=== PATIENT | male | born 1955 | race Caucasian/White ===

== ENCOUNTER → 2021-03-12 12:28 | Outpatient (BNVA) | payer SELFPAY | PROVIDERS: PCP Physician Assistant; Visit Provider Internal Medicine | DX: Z02.79 Encounter for issue of other medical certificate (principal) ==

== ENCOUNTER 2022-06-05 06:27 | Outpatient (REF) | payer MEDICARE, SELFPAY ==
--- NOTE | ~2022-06-05 | XR_ITS ---
EXAMINATION: XR SHOULDER, LEFT CLINICAL INFORMATION: Pain. COMPARISON: None TECHNIQUE: AP external rotation, Grashey, scapular Y, and axillary views of the left shoulder. FINDINGS: There is mild reduction in the left AC joint with inferior spurring. The glenohumeral joint space is maintained normal. No visible acute fracture, dislocation or subluxation seen. The soft tissues are normal. XR/XR shoulder LT min 2V IMPRESSION: Mild degenerative changes left AC joint without acute fracture or dislocation.
== END 2022-06-05 06:28 | disposition home or self-care (01) ==
LOC: HO.XRAY 06:27
PROVIDERS: PCP Physician Assistant; Visit Provider Physician Assistant
DX: M25.512 Pain in left shoulder (principal)
CPT/HCPCS: 73030

== ENCOUNTER 2022-10-29 08:43 | Outpatient (REF) | payer MEDICARE, SELFPAY ==
[2022-10-29 09:35] LABS: Hemoglobin 12.7 g/dl (14.0-18.0); Mean Corpuscular HGB Conc 32.6 g/dl (31.0-36.0); Mean Corpuscular Hemoglobin 30.8 pg (27.0-33.0); Mean Corpuscular Volume 94.7 fL (80.0-98.0); Mean Platelet Volume 10.5 fL (9.4-12.4); Platelet Count 185 X10*3/uL (160-400); Red Blood Count 4.12 X10*6/uL (4.60-5.80); Red Cell Distribution Width 14.2 % (11.0-16.0); White Blood Count 8.1 X10*3/uL (4.8-10.8)
[2022-10-29 10:19] LABS: Alanine Aminotransferase 60 U/L (0-40); Albumin Level 4.2 g/dL (3.5-5.0); Alkaline Phosphatase 147 U/L (39-117); Anion Gap 12 (12-20); Aspartate Amino Transferase 50 U/L (5-37); Bilirubin Total 0.5 mg/dL (0.0-1.0); Blood Urea Nitrogen 12 mg/dL (9-16); Calcium 9.5 mg/dL (8.4-10.2); Carbon Dioxide 27 mmol/L (22-29); Chloride 108 mmol/L (96-108); Cholesterol 178 mg/dL; Estimated Glomerular Filt Rate > 60; Glucose Fasting 102 mg/dL (60-99); HDL Cholesterol 49 mg/dL; LDL Cholesterol Calculated 115 mg/dl; Potassium 4.3 mmol/L (3.3-5.1); Sodium 143 mmol/L (135-145); Total Protein 6.5 g/dL (6.5-8.0); Triglycerides 72 mg/dL
== END 2022-10-29 08:44 | disposition home or self-care (01) ==
LOC: HO.LAB 08:43
PROVIDERS: PCP Physician Assistant; Visit Provider Physician Assistant
DX: Z13.1 Encounter for screening for diabetes mellitus (principal); F17.200 Nicotine dependence, unspecified, uncomplicated
CPT/HCPCS: 36415; 80053; 80061; 85027

== ENCOUNTER → 2022-11-03 09:45 | Outpatient (BNVA) | payer MEDICARE, SELFPAY | PROVIDERS: PCP Physician Assistant; Visit Provider Physician Assistant | DX: M75.112 Incomplete rotator cuff tear or rupture of left shoulder, not specified as traumatic (principal) | CPT/HCPCS: 99202 ==

== ENCOUNTER 2022-11-08 10:19 | Outpatient (REF) | payer MEDICARE, SELFPAY ==
--- NOTE | ~2022-11-08 | MR_ITS ---
EXAMINATION: MRI LEFT SHOULDER WITHOUT CONTRAST CLINICAL INFORMATION: Left shoulder pain. COMPARISON: Radiographs 06/05/2022 TECHNIQUE: MRI of the shoulder without contrast is performed on a 1.5 Gabby high-field scanner. FINDINGS: ROTATOR CUFF: Complete or near complete tear of the supraspinatus tendon as there may be some articular surface fibers remaining intact. The superficial fibers are retracted 10 mm. Subscapularis and infraspinatus tendinopathy. No muscle atrophy or fatty infiltration. BICEPS: Mild proximal biceps tendinosis. CORACOACROMIAL ARCH: The undersurface of the acromion is curved with [id number] subacromial spurring. Moderate acromioclavicular osteoarthritis. Prominent fluid throughout the subacromial subdeltoid bursa with synovitis supports full-thickness tearing of the supraspinatus tendon insertion. There is ossification and low signal thickening along the coracoclavicular ligaments most likely due to a remote injury. LABRUM/CAPSULE: Probable undersurface degenerative tearing of the superior labrum. GLENOHUMERAL JOINT/MARROW: Small joint effusion. Cartilage thinning and osteophyte formation of the anterior glenoid rim. Degenerative spurring and areas of marrow edema along the greater tuberosity. ADDITIONAL FINDINGS: None. MR/MR shoulder LT wo con IMPRESSION: 1. Complete or near complete tear of the supraspinatus tendon insertion. 2. Subscapularis/infraspinatus tendinosis. 3. Subacromial spurring. Moderate acromioclavicular osteoarthritis. Evidence of a remote injury of the coracoclavicular ligaments. 4. Probable undersurface degenerative tearing of the superior labrum. 5. Mild proximal biceps tendinosis. 6. Mild glenohumeral osteoarthritis with a small joint effusion.
== END 2022-11-08 10:20 | disposition home or self-care (01) ==
LOC: HO.MRI 10:19
PROVIDERS: PCP Physician Assistant; Visit Provider Physician Assistant
DX: M67.912 Unspecified disorder of synovium and tendon, left shoulder (principal)
CPT/HCPCS: 73221

== ENCOUNTER → 2022-11-27 13:14 | Outpatient (BNVA) | payer MEDICARE, SELFPAY | PROVIDERS: PCP Physician Assistant; Visit Provider Orthopaedic Surgery | DX: M75.102 Unspecified rotator cuff tear or rupture of left shoulder, not specified as traumatic (principal) | CPT/HCPCS: 99212 ==

== ENCOUNTER 2023-02-03 08:58 | Outpatient (AMB) | payer MEDICARE, SELFPAY ==
[2023-02-03 09:10] VITALS: BP 128/80; PULSE 80; O2SAT 96; BMI 25.9
--- NOTE | 2023-02-03 09:10 | A.OFFPC_ITS ---
Vital Signs 02/03/23 09:10 Height 5 ft 8.5 in Weight 173 lb BMI 25.9 BP 128/80 Blood Pressure Location Lt brachial Position Sitting Pulse 80 Pulse Source Pulse Oximeter Pulse Oximetry (%) 96 Oxygen Delivery Method Room Air Intake Visit Reasons: Annual exam Allergies No Known Allergies Allergy (Verified 02/03/23 09:29) Medication List - Last Reconciled 02/03/23 by Favian Roche PA-C acetaminophen ER (Tylenol 8 Hour) 1,950 mg PO TID Tobacco use date assessed: 10/15/22 HPI Annual exam HPI Details Patient is a 68-year-old male here today for routine annual physical. Patient has a past medical history significant for tobacco dependency and recently had incomplete rotator cuff tear of the left shoulder. He is due for left rotator cuff repair in February 2023. Vaccines: Declines COVID, pneumonia, shingles vaccines Colon cancer screening: Willing to do Cologuard Reviewed most recent labs with patient and noted elevated liver enzymes in the s etting of taking high doses Tylenol. Since his labs have been drawn he has reduced his Tylenol intake. Will recheck liver enzymes in near future. FORMERLY [facility], [facility]1983 Medical History Tobacco dependence Surgical History History of back surgery History of cholecystectomy History of surgery Social History (Updated 02/03/23 @ 09:34 by Favian Roche PA-C) Housing: Apartment Alcohol intake: never Patient Tobacco Use Status: Current everyday Tobacco user Tobacco use type: Cigarette Cigarette Packs Per Day: 0.5 Cigarettes Per Day: 10 e-Cigarette/Vaping Use: Never Used Second Hand Smoke Exposure: Yes service: No Current occupational status: employed Current occupation: right handed- [employer] work Cognitive needs: No Hearing needs: No Vision needs: No Questionnaire PHQ-9 Over the last 2 weeks, how often have you been bothered by any of the following problems? 1. Little interest or pleasure in doing things: not at all 2. Feeling down, depressed, or hopeless: not at all 3. Trouble falling or staying asleep, or sleeping too much: not at all 4. Feeling tired or having little energy: not at all 5. Poor appetite or overeating: not at all 6. Feeling bad about yourself - or that you are a failure or have let yourself or your family down: not at all 7. Trouble concentrating on things, such as reading the newspaper or watching television: not at all 8. Moving or speaking so slowly that other people could have noticed. Or the opposite - being so fidgety or restless that you have been moving around a lot more than usual: not at all 9. Thoughts that you would be better off or of hurting yourself in some way: not at all Total score: 0 Depression Screening Interpretation: Negative 16188 - PHQ-9 Billing: Yes Source: Developed by Drs. Chuck Tamayo, Lidia Greenberg, Wilman Farrell and colleagues, with an educational corey from [employer]. Thrive Questionnaire Date Thrive assessed: 10/15/22 I am a: Patient What is your living situation today?: I have a steady place to live Within the past 12 months, did the food you bought not last and you didn't have the money to get more?: Never true Within the past 12 months, did you worry whether your food would run out before you got money to buy more?: Never true Currently or been in a relationship where the following occur: no concerns reported AUDIT C Alcohol Use Questionnaire (AUDIT-C) 1. How often do you have a drink containing alcohol?: Never 3. How often do you have six or more drinks on one occasion?: Never Total Score: 0 SUMA-7 AMB Questionnaire SUMA-7 Date SUMA - 7 assessed: 10/15/22 Feeling nervous, anxious, or on edge: 0 = Not at all Not being able to stop or control worryin = Not at all Worrying too much about different things: 0 = Not at all Trouble relaxin = Not at all Being so restless that it is hard to sit still: 0 = Not at all Becoming easily annoyed or irritable: 0 = Not at all Feeling afraid as if something awful might happen: 0 = Not at all Total SUMA-7 score (0-4 normal; 5-9 mild; 10-14 moderate; 15-21 severe): 0 Source: Developed by Drs. Chuck Tamayo, Wilman Juarez and colleagues, with an educational corey from [employer]. SUMA-7 Assessment Billing SUMA-7 Assessment Tool: SUMA-7 Assessment 98114 Review of Systems Const Denies body aches, Denies chills, Denies excessive sweating, Denies fatigue, Denies fever(s) and Denies headache(s) Eyes Denies blurry vision ENT Denies dysphagia, Denies vertigo, Denies dizziness, Denies headache(s), Denies hearing loss and Denies tinnitus Card Denies chest pain, Denies chest pain with activity, Denies syncope, Denies irregular heart rhythm and Denies dyspnea Resp Denies chest congestion, Denies cough, Denies hemoptysis, Denies dyspnea and Denies wheezing GI Denies abdominal pain, Denies melena, Denies hematochezia, Denies coffee ground emesis, Denies dysphagia, Denies diarrhea, Denies nausea and Denies vomiting Denies difficulty urinating, Denies dysuria, Denies urinary frequency, Denies urinary hesitancy and Denies urinary urgency Musc Denies arthralgias, Denies limited range of motion, Denies muscle cramps and Denies muscle weakness Skin/Breast Denies rash and Denies skin ulcer Neuro Denies Abnormal speech present, Denies confusion, Denies vertigo, Denies dizziness, Denies syncope, Denies headache(s), Denies memory loss and Denies seizure-like activity Psych Denies anxiety, Denies confusion, Denies depression, Denies memory loss, Denies panic attacks and Denies paranoia Endo Denies excessive sweating, Denies fatigue, Denies flushing, Denies polydipsia and Denies polyuria Aller/Immun Denies wheezing Physical exam (Primary Care) Vital Signs: Last Vital Signs Pulse 80 02/03/23 09:10 BP 128/80 02/03/23 09:10 Pulse Ox 96 02/03/23 09:10 Oxygen Delivery Method Room Air 02/03/23 09:10 BMI result Body Mass Index 25.9 Tobacco/Smoking Status: Tobacco use Status Tobacco use date assessed 10/15/22 02/03/23 09:13 Patient Tobacco Use Status Current everyday Tobacco 02/03/23 09:34 Tobacco use type Cigarette 02/03/23 09:34 e-Cigarette/Vaping Use Never Used 02/03/23 09:34 Are you ready to quit: No Tobacco cessation counseling provided: Yes Relapse Prevention: discussed the importance of a supportive environment, discussed negative mood or depression after quitting, weight gain after smoking is common and discussed dietary, exercise and/or lifestyle changes Number of minutes spent counselin CPT code: 52118 - 4-10 Minutes PHQ-9: PHQ-9 Score PHQ-9: Total score 0 02/03/23 09:33 Depression Screening Interpretation: Negative Thrive Assessment: Date of Thrive Assessment Date Thrive assessed 10/15/22 02/03/23 09:13 Currently or been in a relationship where the following occur: no concerns reported Const General: cooperative, comfortable, no acute distress, alert and awake; No confusion Orientation/consciousness: oriented to person, oriented to place, patient oriented x3 and No confusion HENMT Head: Yes normocephalic Ears: external ears normal and TM's normal bilaterally Face and sinus: No sinus tenderness Mouth: Normal oral and palatal mucosa present and tongue normal Teeth and gingiva: dentition normal and gingiva normal Throat: Yes posterior oropharynx normal, Yes tonsils normal and Yes uvula midline Eyes Conjunctivae: conjunctivae normal Sclerae: sclerae normal Pupils: Equal, round and reactive pupils present EOM: EOMs intact bilaterally Direct Ophthalmoscopy: No no photophobia Neck Neck: Yes no lymphadenopathy, No tender and Yes no JVD Thyroid: Thyroid normal Carotids: no bruits Chest Chest palpation & inspection: no tenderness Resp Effort & Inspection: normal respiratory effort, no audible wheezes, not labored and no stridor Auscultation: no crackles, no rales, no rhonchi and no wheezes Cardio Jugular venous distension: no JVD Rate: regular rate, not bradycardic and not tachycardic Rhythm: regular rhythm Bruits: no carotid bruits Peripheral pulses: Peripheral pulses 2+ throughout GI Inspection: Yes normal to inspection, No abdominal wall ecchymosis and No visible herniation Palpation (GI): Soft to palpation, nontender, no guarding, not rigid and No hepatosplenomegaly present Auscultation: normoactive bowel sounds General: Yes no CVA tenderness Back/Spine/Pelvis Back: no CVA tenderness and No back tenderness Cervical Spine: cervical ROM normal Thoracic/Lumbar Spine: thoracic and lumbar spine normal to inspection, straight leg raise negative bilaterally, No thoraco-lumbar ROM limited and No lumbar spinal tenderness Skin Lesions: no lesions Rashes: no rashes Wounds: no wounds Neuro General: oriented to person, oriented to place, patient oriented x3, CN's II-XI intact bilaterally and No confusion Cranial nerves: Yes Equal, round and reactive pupils present and Yes Normal accommodation reflex present Cognition (Neuro): normal cognition Speech: No Abnormal speech present Gait exam (Neuro): Normal gait present Motor exam (neuro): 5/5 motor strength present throughout Extrem Right upper extremity: full ROM; no cyanosis Left upper extremity: full ROM; no cyanosis Right lower extremity: no edema Left lower extremity: no edema Psych Appearance: grossly normal Mental Status: mental status grossly normal Affect: normal affect Attitude: cooperative Thought process: Normal thought process present Assessment and Plan Assessment & Plan (1) Annual physical exam: Code(s): Z00.00 - Encounter for general adult medical examination without abnormal findings (2) Tobacco dependence: Code(s): F17.200 - Nicotine dependence, unspecified, uncomplicated Plan: Patient does understand he needs to quit smoking. He has nicotine lozenges at home that he does use that helps him reduce his smoking. Otherwise declines offers to start p.o. medications to help him quit. Also considering lung cancer screening program at this time. (3) Incomplete rotator cuff tear or rupture of left shoulder, not specified as traumatic: Code(s): M75.112 - Incomplete rotator cuff tear or rupture of left shoulder, not specified as traumatic Plan: Is anticipating left shoulder rotator cuff repair in February of 2023 (4) Colon cancer screening: Code(s): Z12.11 - Encounter for screening for malignant neoplasm of colon Plan: Willing to do Cologuard Orders: Orders Comprehensive [place]. Panel Fast Today Z13.1 - Encounter for screening for diabetes mellitus Referrals Cologuard Test Z12.11 - Encounter for screening for malignant neoplasm of colon Coding Level of Care Code Est Pt Prev Care >65y(20588) Diagnoses Annual physical exam Z00.00 Tobacco dependence F17.200 Incomplete rotator cuff tear or rupture of left shoulder, not specified as traumatic M75.112 Colon cancer screening Z12.11 Additional Codes Vital Signs *Quality* - CPT code: 53684 - 4-10 Minutes ([id number]) SUMA-7 Assessment Billing - SUMA-7 Assessment Tool: SUMA-7 Assessment 54690 ([id number])
== END 2023-02-03 10:06 | disposition home or self-care (01) ==
PROVIDERS: PCP Physician Assistant; Visit Provider Physician Assistant
DX: Z00.00 Encounter for general adult medical examination without abnormal findings (principal); F17.210 Nicotine dependence, cigarettes, uncomplicated; M75.112 Incomplete rotator cuff tear or rupture of left shoulder, not specified as traumatic; Z12.11 Encounter for screening for malignant neoplasm of colon
CPT/HCPCS: 99397

== ENCOUNTER 2023-03-02 12:20 | Outpatient (AMB) | payer MEDICARE, SELFPAY ==
--- NOTE | 2023-03-02 12:33 | MHC.OFFVIS ---
Intake Intake Visit Reasons: Pre-Op LT RTC Repair 03/11/23NE Intake Note: Saul is a 67 year old male who presents today for a pre op for left RTC repair 03/11/23 NE. Allergies No Known Allergies Allergy (Verified 03/02/23 12:34) HPI Pre-Op LT RTC Repair 03/11/23NE HPI Details 68-year-old right hand dominant male who presents in the office today for his preoperative history and physical exam prior to a left shoulder rotator cuff repair to be performed on 03/11/[address] Leon. Patient works in [employer]. Patient has no known allergy history. Patient is currently taking, as follows: -Acetaminophen ER 1.950 mg PO TID Patient has no significant medical history. Patient has a surgical history, as follows: -History of cholecystectomy -History of back surgery -History of left shoulder surgery Patient has a social history, as follows: -Tobacco; 0.5 pack per day (about 10 cigarettes) PFSH Medical History Tobacco dependence Surgical History History of back surgery History of cholecystectomy History of surgery Social History Housing: Apartment Alcohol intake: never Patient Tobacco Use Status: Current everyday Tobacco user Tobacco use type: Cigarette Cigarette Packs Per Day: 0.5 Cigarettes Per Day: 10 e-Cigarette/Vaping Use: Never Used Second Hand Smoke Exposure: Yes service: No Current occupational status: employed Current occupation: right handed- [email or web address] work Cognitive needs: No Hearing needs: No Vision needs: No Review of Systems Const All systems reviewed & are unremarkable except as noted in HPI and below Physical Exam Const General: cooperative, healthy appearing, comfortable, no acute distress, well developed, alert and awake Orientation/consciousness: patient oriented x3 HEENT Head: Yes normal to inspection, Yes normocephalic and Yes atraumatic Eyes General: appearance normal, both eyes and all related structures EOM: EOMs intact bilaterally Neck Neck: Yes normal visual inspection and Yes no lymphadenopathy Resp Effort & Inspection: normal respiratory effort and able to speak in complete sentences Cardio Jugular venous distension: no JVD Rate: regular rate Peripheral pulses: Peripheral pulses 2+ throughout GI Inspection: Yes normal to inspection Palpation (GI): Soft to palpation Skin General skin exam: no rashes or lesions noted Rashes: no rashes Neuro General: patient oriented x3 Extrem Other: Left Shoulder: skin intact 75/120/40/L5 +ec (4/5) + H/N Psych Appearance: grossly normal Mental Status: mental status grossly normal Affect: normal affect Attitude: cooperative Assessment & Plan Assessment & Plan (1) Left rotator cuff tear: Code(s): M75.102 - Unspecified rotator cuff tear or rupture of left shoulder, not specified as traumatic Qualifiers: Encounter type: subsequent encounter Rotator cuff tear extent: complete Rotator cuff tear trauma status: traumatic Qualified Code(s): S46.012D - Strain of muscle(s) and tendon(s) of the rotator cuff of left shoulder, subsequent encounter Plan Mr. Garcia is a 68-year-old right hand dominant male who presents in the office today for his preoperative history and physical exam prior to a left shoulder rotator cuff repair to be performed on 03/11/[address] Leon. Patient works in [employer]. Patient has no known allergy history. Patient is currently taking, as follows: -Acetaminophen ER 1.950 mg PO TID Patient has no significant medical history. Patient has a surgical history, as follows: -History of cholecystectomy -History of back surgery -History of left shoulder surgery Patient has a social history, as follows: -Tobacco; 0.5 pack per day (about 10 cigarettes) I discussed in detail the procedure and what to expect pre and post operatively. We discussed the risks, benefits and alternatives to the surgery as well as the rehabilitation course. The risks; which include, but are not limited to infection, bleeding, nerve injury, ongoing pain, swelling, and stiffness, perioperative risk of injury to bones and soft tissues, and blood clots. I have answered all questions and with their understanding they have consented to move forward with a left shoulder rotator cuff repair to be performed on 03/11/[address] Leon. Follow up will be at the post operative appointment on 03/16/2023 or sooner if needed. Patient Instructions: Scribed for Torie Miller PA-C by Anabell Canela medical appointment clerk, on 03/02/2023 at 12:24 pm, EST. Coding Level of Care Code Global (09389) Diagnoses Traumatic complete tear of left rotator cuff, subsequent encounter S46.012D Encounter type: subsequent encounter Rotator cuff tear extent: complete Rotator cuff tear trauma status: traumatic
== END 2023-03-02 13:13 | disposition home or self-care (01) ==
PROVIDERS: PCP Physician Assistant; Visit Provider Physician Assistant
DX: S46.012D Strain of muscle(s) and tendon(s) of the rotator cuff of left shoulder, subsequent encounter (principal)
CPT/HCPCS: 99024

== ENCOUNTER → 2023-03-02 12:20 | Outpatient (BNVA) | payer MEDICARE, SELFPAY | PROVIDERS: PCP Physician Assistant; Visit Provider Physician Assistant ==

== ENCOUNTER 2023-03-11 10:13 | Day surgery (SDC) | payer MEDICARE, SELFPAY ==
[2023-03-06 14:30] VITALS: BMI 25.9
--- NOTE | 2023-03-10 08:23 | HO.ANESPROP2 ---
Documented by User: Lizeth Cyr NP 03/10/23 08:23 HPI - Anesthesia Eval Consult details Narrative: 68yo M for Left Arthroscopic Rotator Cuff Repair PMFSH Active Problems Active Problems: All Active Problems (Updated 03/06/23 @ 14:27 by Shirley Vanegas RN) Colon cancer screening (Acute) Annual physical exam (Acute) Left rotator cuff tear (Acute) Incomplete rotator cuff tear or rupture of left shoulder, not specified as traumatic (Acute) Screening for malignant neoplasm of colon declined (Acute) Screening for diabetes mellitus (DM) (Acute) Tendinopathy of left shoulder (Acute) Left shoulder pain (Acute) Tobacco dependence (Acute) Past Medical History Medical History Left shoulder pain Tobacco dependence Surgical History Surgical History History of cholecystectomy History of back surgery History of surgery Social History Social History Housing: Apartment Alcohol intake: never Patient Tobacco Use Status: Current everyday Tobacco user Tobacco use type: Cigarette Cigarette Packs Per Day: 1.5 Cigarettes Per Day: 30.0 e-Cigarette/Vaping Use: Never Used Second Hand Smoke Exposure: Yes Use of substances other than those prescribed or required for medical reasons: No Are you DNR?: No Advance Directives: No Advance Directives Information Provided: Yes service: No Current occupational status: employed Current occupation: right handed- [employer] work Cognitive needs: No Hearing needs: No Vision needs: No Meds Allergies Allergy/AdvReac Type Severity Reaction Status Date / Time No Known Allergies Allergy Verified 03/02/23 12:34 Exam Exam Date and Time: March 10, 2023 0823 Height,Weight and Vital Signs: Height 5 ft 8.5 in Weight 78.471 kg Pertinent Lab Results Pertinent Lab Results: Laboratory Tests 10/29/22 09:00 WBC 8.1 Hgb 12.7 L Hct 39.0 L Plt Count 185 Sodium 143 Potassium 4.3 Chloride 108 Carbon Dioxide 27 BUN 12 Creatinine 0.77 Assessment and Plan Assessment Anesthesia Assessment: Chart Reviewed Documented by User: Yoko Carrera MD 03/11/23 10:38 PMFSH Past Medical History Medical History Left shoulder pain Tobacco dependence Family History Family history of problems with anesthesia: No Surgical History Surgical History History of cholecystectomy History of back surgery History of surgery History of Problems with Anesthesia: No Social History Social History Housing: Apartment Alcohol intake: never Patient Tobacco Use Status: Current everyday Tobacco user Tobacco use type: Cigarette Cigarette Packs Per Day: 1.5 Cigarettes Per Day: 30.0 e-Cigarette/Vaping Use: Never Used Second Hand Smoke Exposure: Yes Use of substances other than those prescribed or required for medical reasons: No Are you DNR?: No Advance Directives: No Advance Directives Information Provided: Yes service: No Current occupational status: employed Current occupation: right handed- [employer] work Cognitive needs: No Hearing needs: No Vision needs: No Meds Allergies Allergy/AdvReac Type Severity Reaction Status Date / Time No Known Allergies Allergy Verified 03/02/23 12:34 Exam Airway Mallampati Class: II TM Dist: >3cm Neck ROM: Full Heart: rrr Lungs: cta Assessment and Plan Assessment Anesthesia Assessment: Anesthesia Plan Discussed and Smoking Cess. Discussed Final Anesthetic Review Family History of Problems with Anesthesia: No History of Problems with Anesthesia: No NPO: Yes ASA Class: II Final Preanesthetic Review: No Changes in Pt Med Stat, Meds/Allgs Chart Reviewed, Consent Obtained/Reviewed and Anes Risks/Benef Reviewed Patient Risk: Intermediate Procedure Risk: Intermediate Anesthetic Plan Anesthetic Plan: GA and Regional Block Disposition: Standard PACU
[2023-03-11 10:38] VITALS: BP 137/78; PULSE 71; RESP 16; TEMP 36.4; O2SAT 98
--- NOTE | 2023-03-11 10:45 | MHC.SHP ---
Pre-Procedural Eval Section A Date of Service: 03/11/23 The patient is an INPATIENT: No Changes since office visit: No Cold of Flu in the past 2 weeks, No New Medical Problems, No Changes in Medication and No Patient answered all questions The History & Physical has been completed within 30 days and I have reviewed it.: Yes Section B Chief Complaint: Unspecified rotator cuff tear or rupture of left Allergies: Allergies Allergy/AdvReac Type Severity Reaction Status Date / Time No Known Allergies Allergy Verified 03/02/23 12:34 Plan I have reviewed the history and physical and performed a pertinent physical examination on my patient. No changes have occurred unless specified. Time Spent With Patient Time: Total time managing care of this patient today ____ minutes.
[2023-03-11] MEDS: Lactated Ringers 1,000 ML 100 ML IVCONT (10:55)
[2023-03-11 13:15] VITALS: BP 116/70; PULSE 72; RESP 18; TEMP 36.9; O2SAT 98
[2023-03-11 13:20] VITALS: BP 114/60; PULSE 72; RESP 18; O2SAT 94
[2023-03-11 13:25] VITALS: BP 101/57; PULSE 68; RESP 17; O2SAT 95
[2023-03-11 13:30] VITALS: BP 102/52; PULSE 66; RESP 17; O2SAT 94
[2023-03-11 13:45] VITALS: BP 105/62; PULSE 66; RESP 18; TEMP 37; O2SAT 96
--- NOTE | 2023-03-11 15:44 | PM.OP ---
Brief Operative Note Date of Service: 03/11/23 Pre-op diagnosis: left RTC tear Post-op diagnosis: other (1) RTC tear 2) SLAP tear) Procedure: RTC repair with SAD and biceps tenotomy Implants: Flores and nephew Healcoil medial row double loaded x 2 and lateral 5.5 knotless lateral Surgeon: Kelvin Leon MD Anesthesia: GETA and regional Was an Preassembler Printed Circuit Board used for this Procedure?: Yes Preassembler [employer]ed [employer] Board: Torie Miller Estimated blood loss (mL): 20 IV fluids (mL): 1,000 Pathology: none sent Condition: stable Disposition: PACU
--- NOTE | 2023-03-16 09:56 | W.PM.OPN ---
Operative Note Operative Note Date of Service: 03/11/23 Narrative: Date of Service: 03/11/23 Pre-op diagnosis: left RTC tear Post-op diagnosis: other (1) RTC tear 2) SLAP tear) Procedure: RTC repair with SAD and biceps tenotomy Implants: Flores and nephew Helacoil medial row double loaded x 2 and lateral 5.5 knotless lateral Surgeon: Kelvin Leon MD Anesthesia: GETA and regional Was an [employer]ap [employer] Architect used for this Procedure?: Yes Sap Solutions Architect: Torie Miller Estimated blood loss (mL): 20 IV fluids (mL): 1,000 Pathology: none sent Condition: stable Disposition: PACU Procedure in detail: Patient was brought to the operating room and placed the the beach chair position. All bony prominences were well padded and the limb was prepped and draped in standard sterile fashion. A time out was called to identify proper site, proper procedure and proper surgeon. IV antibiotics per weight were administered. I began by making a posterolateral stab incision with a 15 blade. A blunt trochar was placed into the glenohumeral joint and I insufflated the joint with saline and a 30 degree arthroscope was placed. I established an outside- in anterior portal just distal to the biceps tendon. I then began my inspection of the glenohumeral joint. There was a large degenerative SLAP tear at the biceps anchor. There were minimal cartilage changes at the inferior glenoid without humeral head changes. There was a full thickness undersurface RTC tear. The subcapularis was intact. I debrided the loose cartilage of the glenoid and the degenerative labral tearing and performed a biceps tenotomy. I then removed the trochar and entered the subacromial space. A direct lateral portal was then established and I performed a bursectomy. The cuff was then examined. There was a full thickness tear of the supra and infraspinatus without retraction. The tear was mobile. A second lateral portal was established. I placed two medial row double loaded anchors after using a tap just adjacent to the articular cartilage and then brought the suture limbs ( 8) through the medial cuff. I then debrided the bare area down to bleeding bone and, using a cross bridge configuration, brought 4 limbs to each of two lateral 5.5 anchors. This re-approximated the cuff anatomy anatomically. I performed a 5mm sub acromial decompression. Once I was satisfied with the repair final images were captured and I removed all instrumentation. Portals were closed with nylon. Patient was placed in an abduction sling, extubated and brought to the recovery room in stable condition. There were no known complications.
== END 2023-03-11 15:10 | disposition home or self-care (01) ==
LOC: HO.SSS 10:14
PROVIDERS: PCP Physician Assistant; Visit Provider Orthopaedic Surgery
PROC: (CPT 29827; principal; 2023-03-11 12:50)
DX: M75.102 Unspecified rotator cuff tear or rupture of left shoulder, not specified as traumatic (principal); F17.210 Nicotine dependence, cigarettes, uncomplicated
CPT/HCPCS: 29827; 29826; C1713; J0171; J0690; J1100; J1885; J2250; J2371; J3010

== ENCOUNTER → 2023-03-11 10:13 | Outpatient (BNV) | payer MEDICARE, SELFPAY | PROVIDERS: PCP Physician Assistant; Visit Provider Orthopaedic Surgery | DX: M75.122 Complete rotator cuff tear or rupture of left shoulder, not specified as traumatic (principal); S43.432A Superior glenoid labrum lesion of left shoulder, initial encounter | CPT/HCPCS: 29827 ==

== ENCOUNTER 2023-03-16 09:29 | Outpatient (AMB) | payer MEDICARE, SELFPAY ==
--- NOTE | 2023-03-16 09:37 | A.OFFVIS_ITS ---
Intake Vital Signs 03/16/23 09:39 Height 5 ft 11 in Weight 180 lb BMI 25.1 Intake Visit Reasons: PO LT RTC Repair 03/11/23NE Intake Note: Saul a 68 year old male who presents today for a post operative left RTC repair on 03/11/23 NE. Patient reports mild pain that gets worse at night. He is questioning when he is able to drive. Allergies No Known Allergies Allergy (Verified 03/16/23 09:41) HPI PO LT RTC Repair 03/11/23NE HPI Details 68-year-old male who returns to the [facility] today for post-op left RTC repair, 03/11/[address] Leon. He continues to have mild pain in his shoulder which is aggravated at night. He is wearing his sling as instructed except while sleeping. He is doing well otherwise and has no concerns today. [facility]MERLY [facility] Medical History Left shoulder pain Tobacco dependence Surgical History History of cholecystectomy History of back surgery History of surgery Social History Housing: Apartment Alcohol intake: never Patient Tobacco Use Status: Current everyday Tobacco user Tobacco use type: Cigarette Cigarette Packs Per Day: 1.5 Cigarettes Per Day: 30.0 e-Cigarette/Vaping Use: Never Used Second Hand Smoke Exposure: Yes service: No Current occupational status: employed Current occupation: right handed- [employer] work Cognitive needs: No Hearing needs: No Vision needs: No Review of Systems Const All systems reviewed & are unremarkable except as noted in HPI and below Physical Exam Vital Signs: BMI result Body Mass Index 25.1 Extrem Other: Left shoulder: Incision clean, dry and intact. No erythema or drainage. Sensation intact. Assessment & Plan Assessment & Plan (1) S/P rotator cuff repair: Code(s): Z98.890 - Other specified postprocedural states Plan Sutures removed today, steri strips applied. I did stress the importance of wearing the sling at night and when he is up, out and about. I explained that he can remove the sling for hygiene and exercises only. A therapy order has been placed. He states he did not receive a phone call. They will walk over today to make that appointment. I did stress the importance of starting therapy this week. He will see us back in [address] Leon, sooner if needed. Orders: Orders PT Evaluation and Treatment 03/10/23 Z98.890 - Other specified postprocedural states Patient Instructions: Scribed for Austin Medina PA-C, by Ken Yanes territory sales manager medical, on 03/16/2023 at 9:30 AM EST. I, Austin Medina PA-C, have personally reviewed and agree with the information entered by the scribe. Coding Level of Care Code Global (65203) Diagnoses S/P rotator cuff repair Z98.890
[2023-03-16 09:39] VITALS: BMI 25.1
== END 2023-03-16 10:18 | disposition home or self-care (01) ==
PROVIDERS: PCP Physician Assistant; Visit Provider Physician Assistant
DX: M75.102 Unspecified rotator cuff tear or rupture of left shoulder, not specified as traumatic (principal)
CPT/HCPCS: 99024

== ENCOUNTER → 2023-03-16 09:29 | Outpatient (BNVA) | payer MEDICARE, SELFPAY | PROVIDERS: PCP Physician Assistant; Visit Provider Physician Assistant ==

== ENCOUNTER 2023-04-15 08:18 | Outpatient (AMB) | payer MEDICARE, SELFPAY ==
--- NOTE | 2023-04-15 08:22 | A.OFFVIS_ITS ---
Intake Vital Signs 04/15/23 08:29 Height 5 ft 11 in Weight 180 lb BMI 25.1 Intake Visit Reasons: PO LT RTC Repair 03/11/23NE Intake Note: Saul maloney 68 year old male presents today for a post operative left RTC repair, 03/11/23 NE. Patient reports he is doing well, he has no concerns today. He continues to work with PT. Allergies No Known Allergies Allergy (Verified 04/15/23 08:22) HPI PO LT RTC Repair 03/11/23NE HPI Details 68 yo male returns to the office today 4 wks s/p Lt RTC repair 03/11/23 with NE. Patient reports he is doing well, he has no concerns today. He continues to work with PT. He works as a chata. [facility] Medical History Left shoulder pain Tobacco dependence Surgical History History of cholecystectomy History of back surgery History of surgery Social History Housing: Apartment Alcohol intake: never Patient Tobacco Use Status: Current everyday Tobacco user Tobacco use type: Cigarette Cigarette Packs Per Day: 1.5 Cigarettes Per Day: 30.0 e-Cigarette/Vaping Use: Never Used Second Hand Smoke Exposure: Yes service: No Current occupational status: employed Current occupation: right handed- [employer] work Cognitive needs: No Hearing needs: No Vision needs: No Review of Systems Const All systems reviewed & are unremarkable except as noted in HPI and below Physical Exam Vital Signs: BMI result Body Mass Index 25.1 Extrem Other: Left shoulder: incision is well healed. No edema or swelling. Passive forward flexion is 45 degrees. Passive external rotation to 30 degrees. Assessment & Plan Assessment & Plan (1) S/P rotator cuff repair: Code(s): Z98.890 - Other specified postprocedural states Plan I reiterated the important of the sling to protect the repair. The patient should wear this for another two weeks. We will be weaned out with physical therapy. He will progress to active range of motion. The patient will follow up in six weeks with Dr. Leon. Coding Level of Care Code Global (88580) Diagnoses S/P rotator cuff repair Z98.890
[2023-04-15 08:29] VITALS: BMI 25.1
== END 2023-04-15 08:41 | disposition home or self-care (01) ==
PROVIDERS: PCP Physician Assistant; Visit Provider Physician Assistant
DX: Z98.890 Other specified postprocedural states (principal)
CPT/HCPCS: 99024

== ENCOUNTER → 2023-04-15 08:18 | Outpatient (BNVA) | payer MEDICARE, SELFPAY | PROVIDERS: PCP Physician Assistant; Visit Provider Physician Assistant ==

== ENCOUNTER 2023-05-29 10:57 | Outpatient (AMB) | payer MEDICARE, SELFPAY ==
[2023-05-29 11:02] VITALS: BMI 25.1
--- NOTE | 2023-05-29 11:02 | A.OFFVIS_ITS ---
Intake Vital Signs 05/29/23 11:02 Height 5 ft 11 in Weight 180 lb BMI 25.1 Intake Visit Reasons: PO LT RTC Repair 03/11/23NE Intake Note: Saul a 68 year old male presents today for a post operative left RTC repair, 03/11/23 NE. Patient reports that he is doig well and he has no concerns Allergies No Known Allergies Allergy (Verified 04/15/23 08:22) HPI PO LT RTC Repair 03/11/23NE HPI Details Saul is a 68 year old man who presents ~10 weeks S/P left RTC repair with SAD & biceps tenotomy. He is doing well and denies any pain. He has been working with PT and has no concerns today. [facility] Medical History Left shoulder pain Tobacco dependence Surgical History History of cholecystectomy History of back surgery History of surgery Social History Housing: Apartment Alcohol intake: never Patient Tobacco Use Status: Current everyday Tobacco user Tobacco use type: Cigarette Cigarette Packs Per Day: 1.5 Cigarettes Per Day: 30.0 e-Cigarette/Vaping Use: Never Used Second Hand Smoke Exposure: Yes service: No Current occupational status: employed Current occupation: right handed- [employer] Cognitive needs: No Hearing needs: No Vision needs: No Review of Systems Const All systems reviewed & are unremarkable except as noted in HPI and below Physical Exam Vital Signs: BMI result Body Mass Index 25.1 Const General: no acute distress, alert and awake Orientation/consciousness: patient oriented x3 HEENT Head: Yes normocephalic and Yes atraumatic Eyes EOM: EOMs intact bilaterally Resp Effort & Inspection: normal respiratory effort and able to speak in complete sentences Cardio Jugular venous distension: no JVD Skin General skin exam: turgor normal Rashes: no rashes Neuro General: patient oriented x3 Extrem Other: 30/70/110 no pain with EC Psych Appearance: grossly normal Affect: normal affect Attitude: cooperative Assessment & Plan Assessment & Plan (1) S/P rotator cuff repair: Code(s): Z98.890 - Other specified postprocedural states Plan: Doing very well I sergey avoid heavy lifting and continue home strengthening Plan Scribed for Kelvin Leon MD by Ryan Linton, medical center director, on 05/29/23 at 11:15 AM, EST. Coding Level of Care Code Global (14831) Diagnoses S/P rotator cuff repair Z98.890
== END 2023-05-29 11:32 | disposition home or self-care (01) ==
PROVIDERS: PCP Physician Assistant; Visit Provider Orthopaedic Surgery
DX: Z98.890 Other specified postprocedural states (principal)
CPT/HCPCS: 99024

== ENCOUNTER → 2023-05-29 10:57 | Outpatient (BNVA) | payer MEDICARE, SELFPAY | PROVIDERS: PCP Physician Assistant; Visit Provider Orthopaedic Surgery | DX: Z47.89 Encounter for other orthopedic aftercare (principal); Z98.890 Other specified postprocedural states | CPT/HCPCS: 99212 ==

== ENCOUNTER 2023-06-04 07:00 | Outpatient (RCR) | payer MEDICARE, SELFPAY ==
--- NOTE | 2023-03-19 13:32 | MHC.PT.EP ---
[facility] [place] Office [place] Office [place] Office [address] Keely Burroughs [address] [phone] F: [phone] F: [phone] F: [phone] F: [phone] Physical Therapy Plan of Care Date of Evaluation: 03/19/03 Date of Surgery: 03/11/23 Diagnosis: S/P RTC REPAIR (SUPRA/INFRASPINATUS) () Assessment: GRETCHEN IS A 68 YO MALE WHO PRESENTS POD #8 FOR ORTHOPEDIC FOLLOW UP AND PT EVALUATION. UPON EXAM HE DEMONSTRATES THE EXPECTED IMPAIRMENTS OF DECREASED ROM, DECREASED STRENGTH, ALTERED POSTURE AND POSITIONING, INCREASED UPPER TRAP GUARDING, AND INCREASED PAIN AND EDEMA. FUNCTIONAL LIMITATIONS INCLUDE DECREASED ABILITY TO PERFORM HOMEMAKING AND SELF-CARE TASKS, DECREASED ABILITY TO PERFORM PUSHING, PULLING, LIFTING AND REACHING. INABILITY TO DRIVE AND PERFORM WORK TASKS, DECREASED PARTICIPATION IN COMMUNITY AND RECREATIONAL ACTIVITIES AND DISRUPTED SLEEP. THE PT IS A GOOD CANDIDATE FOR SKILLED PT DUE TO AGE, POTENTIAL REMEDIATION OF IMPAIRMENTS, TYPICAL DISEASE/CONDITION PROGRESSION AND PROGNOSIS, COMORBIDITIES, AND MOTIVATION. PT WOULD BENEFIT FROM TAILORED PROGRAM OF THERAPEUTIC ACTIVITIES, FUNCTIONAL TRAINING, POSTURAL EDUCATION, NEUROMUSCULAR RE-EDUCATION, AND MODALITIES NEEDED. Frequency and Duration: The patient will be seen 2 X WEEK FOR 12 WEEKS Short Term Goals: INITIATE HEP AND PROMOTE SELF MANAGEMENT OF SYMPTOMS Residential Goals: FULL, PAIN FREE ROM FULL UE STRENGTH, PAIN FREE TO PERFORM COMPUTER AND WORK TASKS WITHOUT RESTRICTION AND PAIN NO GREATER THAN 2/[address] OBJECT AT MINIMUM OF 5# INTO CABINET AT SHOULDER HEIGHT Treatment Plan: Modalities to reduce pain, spasms and effusion. Manual therapy to restore motion and function. Therapeutic exercise to improve strength and flexibility. Neuromuscular re-education for posture and balance. Therapeutic activities to return to functional activities of daily living. Electronically signed by: YARITZA TEE PT DPT Please sign and return to therapist. Thank you for your referral.
--- NOTE | 2023-07-21 09:35 | MHC.PT.DC ---
[facility] [place] Office [place] Office [address] Anamika Burroughs [address] [phone] F: [phone] F: [phone] F: [phone] F: [phone] Physical Therapy Discharge Report Diagnosis: S/P RTC REPAIR (SUPRA/INFRASPINATUS) (SAD AND BI TENOTOMY) Date of Surgery: 03/11/23 Date of Evaluation: 02/27/23 Date of Discharge: 07/21/23 Treatments to Date: 14 Cancellations to Date: 2 No Shows to Date: 0 Discharge Status: Patient Elected to Stop Discharge Summary: AT LAST ATTENDED APPOINTMENT AROM OF SHOULDER ELEVATION WAS 155 W/ INCREASED UPPER TRAP COMPENSATION. OVERLL HE HAD PROGRESSED WELL IN PT. HE NO SHOWED FOR HIS LAST TWO SCHEDULED APPOINTMENTS AND DID NOT RETURN VOICEMAIL MESSAGES. HE HAS NOT ATTENDED PHYSICAL THERAPY IN OVER 30 DAYS SO WE WILL DC HIS CURRENT CHART Electronically signed by: YARITZA TEE PT DPT Please sign and return to therapist. Thank you for your referral.
== END 2023-07-21 09:35 | disposition home or self-care (01) ==
LOC: HO.PT 07:00
PROVIDERS: PCP Physician Assistant; Visit Provider Physician Assistant
DX: Z98.890 Other specified postprocedural states (principal)
CPT/HCPCS: 97110; 97140; 97161

== ENCOUNTER 2024-03-30 10:44 | Outpatient (AMB) | payer MEDICARE, SELFPAY ==
--- NOTE | 2024-03-30 10:50 | AM.OFFVISMDC ---
Intake Vital Signs 03/30/24 10:51 Height 5 ft 11 in Weight 172 lb 6 oz BMI 24.0 BP 142/80 H Blood Pressure Location Lt brachial Position Sitting Pulse 82 Pulse Source Pulse Oximeter Pulse Oximetry (%) 98 Oxygen Delivery Method Room Air Intake Visit Reasons: [facility] Initial AWV Patient Registration Supervisor Required: No Accompanied by: Self / Same As Patient Allergies No Known Allergies Allergy (Verified 03/30/24 10:55) Medication List - Last Reconciled 03/30/24 by Favian Roche PA-C No Known Home Meds HPI MCR Initial AWV HPI Details Patient is a 69-year-old male here today for an annual wellness visit. Patient has a past medical history significant for tobacco dependency and left shoulder tendinopathy Today we discussed patient's into life planning was given a MOLST form. We also discussed his comprehensive care plan which was scanned into patient's documents. Vaccines: Declines COVID, pneumonia, shingles vaccines Colon cancer screening: Has not gotten Cologuard done, he is now willing to do colonoscopy HPI Comments History of Present Illness Details reviewed past medical history- yes reviewed surgical / hospitalization history- yes reviewed current medications- yes reviewed family history- yes home safety throw rugs? grab bars? raised toilet seat? working smoke detectors? activities of daily living difficulty bathing or showering? difficulty dressing? difficulty using the toilet? difficulty getting in and out of bed? difficulty walking? receives help from other person's with any of the above tasks? instrumental activities of daily living uses telephone - gets to place out of walking distance- go shopping for groceries- repairs own meals- does own minor home maintenance- does own laundry- does own housework- manages own money- currently takes medication- end of life planning discussed advanced directives- yes advanced directives on file? discussed wishes expressed in advanced directives. fall risk have you had any falls with injuries in the past year? have you had 2 or more falls in the past year? fall risk assessment: [facility] Medical History Left shoulder pain Tobacco dependence Surgical History History of cholecystectomy History of back surgery History of surgery Social History Housing: Apartment Alcohol intake: never Patient Tobacco Use Status: Current everyday Tobacco user Tobacco use type: Cigarette Cigarette Packs Per Day: 1.5 Cigarettes Per Day: 30.0 e-Cigarette/Vaping Use: Never Used Second Hand Smoke Exposure: Yes service: No Current occupational status: employed Current occupation: right handed- [employer] work Cognitive needs: No Hearing needs: No Vision needs: No Questionnaire Medicare Wellness Checkup What [age] 65-70 What gender do you identify with?: male During the past 4 weeks, how much have you been bothered by emotional problems such as feeling anxious, depressed, irritable, sad or downhearted, and blue?: not at all During the past 4 weeks, has your physical & emotional health limited your social activities with family, friends, neighbors, or groups?: not at all During the past 4 weeks, how much bodily pain have you generally had?: very mild pain During the past 4 weeks, was someone available to help you if you needed & wanted help?: no, not at all Can you get to places out of walking distance without help? (For eg., can you travel alone on buses, taxis or drive your car?): Yes Can you go shopping for groceries or clothes without someone's help?: No Can you prepare your own meals?: Yes Can you do your housework without help?: Yes Because of any health problems, do you need the help of another person with your personal care needs such as eating, bathing, dressing or getting around the house?: No Can you handle your own money without help?: Yes During the past 4 weeks, how would you rate your health in general?: very good During the past 4 weeks how have things been going for you?: very well; could hardly better Are you having difficulties driving your car?: no Do you always fasten your seat belt when you are in a car?: yes, sometimes During past 4 weeks, have you been bothered by the following: never: Falling or dizzy when standing up, Trouble eating well?, Teeth or denture problems?, Problems using the telephone? and Tiredness or fatigue? and sometimes: Sexual problems? Have you fallen 2 or more times in the past year?: No Are you afraid of falling?: No Are you a smoker?: yes, and I might quit During the past 4 weeks, how many drinks of wine, beer, or other alcoholic beverages did you have?: 1 drink or less per week Have you been given information to help with the following?: yes: Keeping track of your medications? and no: Hazards in your house that might hurt you? How often do you have trouble taking medicines the way you have been told to take them?: I do not have to take medicine How confident are you that you can control & manage most of your health problems?: I do not have any health problems What is your race?: White Mini Mental State Exam (MMSE) Orientation What is the (year) (season) (date) (day) (month)?: year Where are we (state) (county) (town or city) (hospital) (floor)?: town or city Attention & Calculation (CHOOSE ONE) Spell WORLD backwards (DLROW): 0 letters Score Score: 2 Activity of Daily Living Bathing - sponge bath, tub bath or shower: receives no assistance (gets in/out by self, if usual bathing means Dressing - getting clothes from closets & drawers, including inner/outer garments & fasteners.: gets clothes & gets completely dressed without help Toileting - going to the 'toilet room' for urine/bowel elimination & cleaning self/arranging clothes: goes to toilet room, cleans self, arranges clothes without help Transfer: moves in & out of bed and chair without help (may use support object) Continence: controls urination/bowel movements completely by self Feeding: feeds self without help Total Score: 0 Information obtained from: patient Using telephone: independent Traveling: independent Shopping: independent Preparing meals: independent Housework: independent Taking medicine: independent Managing money: independent PHQ-9 Over the last 2 weeks, how often have you been bothered by any of the following problems? 1. Little interest or pleasure in doing things: not at all 2. Feeling down, depressed, or hopeless: not at all 3. Trouble falling or staying asleep, or sleeping too much: not at all 4. Feeling tired or having little energy: not at all 5. Poor appetite or overeating: not at all 6. Feeling bad about yourself - or that you are a failure or have let yourself or your family down: not at all 7. Trouble concentrating on things, such as reading the newspaper or watching television: not at all 8. Moving or speaking so slowly that other people could have noticed. Or the opposite - being so fidgety or restless that you have been moving around a lot more than usual: not at all 9. Thoughts that you would be better off or of hurting yourself in some way: not at all Total score: 0 Depression Screening Interpretation: Negative Depression Screening Done: Yes 90945 - PHQ-9 Billing: Yes Source: Developed by Drs. Chuck Tamayo, Lidia Greenberg, Wilman Farrell and colleagues, with an educational corey from [employer]. Physical Exam Vital Signs: Last Vital Signs Pulse 82 03/30/24 10:51 BP 142/80 H 03/30/24 10:51 Pulse Ox 98 03/30/24 10:51 Oxygen Delivery Method Room Air 03/30/24 10:51 BMI result Body Mass Index 24.0 HEENT Other: hearing screening whisper test- pass Eyes Other: vision screening- 20 20 OS OD OU Other: urinary incontinence? no Neuro Other: balance Romberg- normal tandem walk test- able walk-in turned test- able rise from sit to stand- within 2 seconds Assessment & Plan Assessment & Plan (1) Annual wellness visit: Code(s): Z00.00 - Encounter for general adult medical examination without abnormal findings Plan: As per HPI (2) Colon cancer screening: Code(s): Z12.11 - Encounter for screening for malignant neoplasm of colon Plan: Patient now willing to do colonoscopy Orders: Orders Prostate Specific Antigen Scr Today Z12.5 - Encounter for screening for malignant neoplasm of prostate, Z13.1 - Encounter for screening for diabetes mellitus Comprehensive [place]. Panel Fast Today Z13.1 - Encounter for screening for diabetes mellitus Referrals Gastroenterology Referral Z12.11 - Encounter for screening for malignant neoplasm of colon Quality Reporting (2019) Depression/Bipolar (159/160/161/177) PHQ-9: Total score: 0 Coding Level of Care Code Medicare First (G0438) Diagnoses Annual wellness visit Z00.00 Colon cancer screening Z12.11 CPT Codes Advance Care Planning - Time spent: 1-15 minutes, not on file ([id number]) Advance Care Planning Advance Care Planning discussion: Exists, not on file Date of discussion: 03/30/24 Forms completed: VIRGILIO Time spent: 1-15 minutes, not on file Actual minutes spent: 4
[2024-03-30 10:51] VITALS: BP 142/80; PULSE 82; O2SAT 98; BMI 24.0
== END 2024-03-30 11:14 | disposition home or self-care (01) ==
PROVIDERS: PCP Physician Assistant; Visit Provider Physician Assistant
DX: Z00.00 Encounter for general adult medical examination without abnormal findings (principal); Z12.11 Encounter for screening for malignant neoplasm of colon

== ENCOUNTER → 2024-03-30 10:44 | Outpatient (BNVA) | payer MEDICARE, SELFPAY | PROVIDERS: PCP Physician Assistant; Visit Provider Physician Assistant ==

== ENCOUNTER 2025-04-10 07:43 | Outpatient (AMB) | payer MEDICARE, SELFPAY ==
--- NOTE | 2025-04-10 08:10 | A.OFFPC_ITS ---
Intake Visit Reasons: SWV [id number] Allergies No Known Allergies Allergy (Verified 03/30/24 10:55) Tobacco use date assessed: 10/15/22 [facility] Medical History Left shoulder pain Tobacco dependence Surgical History History of cholecystectomy History of back surgery History of surgery Social History Housing: Apartment Alcohol intake: never Patient Tobacco Use Status: Current everyday Tobacco user Tobacco use type: Cigarette Cigarette Packs Per Day: 1.5 Cigarettes Per Day: 30.0 e-Cigarette/Vaping Use: Never Used Second Hand Smoke Exposure: Yes service: No Current occupational status: employed Current occupation: right handed- [employer] Cognitive needs: No Hearing needs: No Vision needs: No Questionnaire Thrive Questionnaire Date Thrive assessed: 10/15/22 SUMA-7 AMB Questionnaire SUMA-7 Date SUMA - 7 assessed: 10/15/22 Source: Developed by Drs. Chuck Tamayo, Lidia Greenberg, Wilman Farrell and colleagues, with an educational corey from [employer]. Physical exam (Primary Care) Tobacco/Smoking Status: Tobacco use Status Tobacco use date assessed 10/15/22 02/03/23 09:13 Patient Tobacco Use Status Current everyday Tobacco 03/11/23 12:56 Tobacco use type Cigarette 03/11/23 10:34 e-Cigarette/Vaping Use Never Used 02/03/23 09:34 Thrive Assessment: Date of Thrive Assessment Date Thrive assessed 10/15/22 02/03/23 09:13 Coding
--- NOTE | 2025-04-10 08:12 | AM.OFFVISMDC ---
Intake Vital Signs 04/10/25 08:13 Height 5 ft 11 in Weight 167 lb 2 oz BMI 23.3 BP 120/68 Blood Pressure Location Lt brachial Position Sitting Pulse 73 Pulse Source Pulse Oximeter Temp 97.1 F Temp Source Temporal Artery Scan Pulse Oximetry (%) 98 Oxygen Delivery Method Room Air Intake Visit Reasons: [facility] G0439 Intake Note: Patient is here for an Annual Wellness Visit. Supply Manager Required: No Holter Scanning Technician: Holter Scanning Technician offered & declined Accompanied by: Self / Same As Patient Allergies No Known Allergies Allergy (Verified 04/10/25 08:21) Medication List - Last Reconciled 04/10/25 by Favian Roche PA-C No Known Home Meds HPI V G0439 HPI Details Patient is a 70-year-old male here today for an annual wellness visit. Patient has a past medical history significant for tobacco dependency and left shoulder tendinopathy Today we discussed patient's into life planning and his [place] of care. We did discuss his end of life planning and was given another MOLST form. We also discussed his comprehensive care plan which was scanned into patient's documents. Vaccines: Declines COVID, pneumonia, shingles vaccines, willing to get flu vaccine Colon cancer screening: Cologuard has , he is willing to get another Cologuard order Laboratory Tests 10/29/22 09:00 RBC 4.12 L Creatinine 0.77 Fasting Glucose 102 H AST 50 H ALT 60 H Cholesterol 178 LDL Cholesterol, C alc 115 HPI Comments History of Present Illness Details reviewed past medical history- yes reviewed surgical / hospitalization history- yes reviewed current medications- yes reviewed family history- yes home safety throw rugs? grab bars? raised toilet seat? working smoke detectors? activities of daily living difficulty bathing or showering? difficulty dressing? difficulty using the toilet? difficulty getting in and out of bed? difficulty walking? receives help from other person's with any of the above tasks? instrumental activities of daily living uses telephone - gets to place out of walking distance- go shopping for groceries- repairs own meals- does own minor home maintenance- does own laundry- does own housework- manages own money- currently takes medication- end of life planning discussed advanced directives- yes advanced directives on file? discussed wishes expressed in advanced directives. fall risk have you had any falls with injuries in the past year? have you had 2 or more falls in the past year? fall risk assessment: [facility] Medical History Left shoulder pain Tobacco dependence Surgical History History of rotator cuff surgery History of cholecystectomy History of back surgery History of surgery Social History Housing: Apartment Alcohol intake: current Alcohol intake frequency: a few times a month Patient Tobacco Use Status: Current everyday Tobacco user Tobacco use type: Cigarette Cigarette Packs Per Day: 0.5 Cigarettes Per Day: 8 e-Cigarette/Vaping Use: Never Used Second Hand Smoke Exposure: Yes service: No Current occupational status: employed Current occupation: right handed- [employer] work Cognitive needs: No Hearing needs: No Vision needs: No Questionnaire Medicare Wellness Checkup What [age] What gender do you identify with?: male During the past 4 weeks, how much have you been bothered by emotional problems such as feeling anxious, depressed, irritable, sad or downhearted, and blue?: not at all During the past 4 weeks, has your physical & emotional health limited your social activities with family, friends, neighbors, or groups?: not at all During the past 4 weeks, how much bodily pain have you generally had?: moderate pain During the past 4 weeks, was someone available to help you if you needed & wanted help?: no, not at all During the past 4 weeks, what was the hardest physical activity you could do for at least 2 minutes?: heavy Can you get to places out of walking distance without help? (For eg., can you travel alone on buses, taxis or drive your car?): Yes Can you go shopping for groceries or clothes without someone's help?: Yes Can you prepare your own meals?: No Can you do your housework without help?: Yes Because of any health problems, do you need the help of another person with your personal care needs such as eating, bathing, dressing or getting around the house?: No Can you handle your own money without help?: Yes During the past 4 weeks, how would you rate your health in general?: good During the past 4 weeks how have things been going for you?: very well; could hardly better Are you having difficulties driving your car?: no Do you always fasten your seat belt when you are in a car?: yes, usually During past 4 weeks, have you been bothered by the following: never: Falling or dizzy when standing up, Sexual problems?, Trouble eating well?, Teeth or denture problems?, Problems using the telephone? and Tiredness or fatigue? Have you fallen 2 or more times in the past year?: No Are you afraid of falling?: No Are you a smoker?: yes, but I'm not ready to quit During the past 4 weeks, how many drinks of wine, beer, or other alcoholic beverages did you have?: 2-5 drinks per week Have you been given information to help with the following?: no: Hazards in your house that might hurt you? and no: Keeping track of your medications? How often do you have trouble taking medicines the way you have been told to take them?: I seldom take medications as prescribed How confident are you that you can control & manage most of your health problems?: very confident What is your race?: White Mini Mental State Exam (MMSE) Orientation What is the (year) (season) (date) (day) (month)?: year Where are we (state) (county) (town or city) (hospital) (floor)?: town or city Score Score: 2 Activity of Daily Living Bathing - sponge bath, tub bath or shower: receives no assistance (gets in/out by self, if usual bathing means Dressing - getting clothes from closets & drawers, including inner/outer garments & fasteners.: gets clothes & gets completely dressed without help Toileting - going to the 'toilet room' for urine/bowel elimination & cleaning self/arranging clothes: goes to toilet room, cleans self, arranges clothes without help Transfer: moves in & out of bed and chair without help (may use support object) Continence: controls urination/bowel movements completely by self Feeding: feeds self without help Total Score: 0 Information obtained from: patient Using telephone: independent Traveling: independent Shopping: independent Preparing meals: dependent Housework: independent Taking medicine: independent Managing money: independent PHQ-9 Over the last 2 weeks, how often have you been bothered by any of the following problems? 1. Little interest or pleasure in doing things: not at all 2. Feeling down, depressed, or hopeless: not at all 3. Trouble falling or staying asleep, or sleeping too much: not at all 4. Feeling tired or having little energy: not at all 5. Poor appetite or overeating: not at all 6. Feeling bad about yourself - or that you are a failure or have let yourself or your family down: not at all 7. Trouble concentrating on things, such as reading the newspaper or watching television: not at all 8. Moving or speaking so slowly that other people could have noticed. Or the opposite - being so fidgety or restless that you have been moving around a lot more than usual: not at all 9. Thoughts that you would be better off or of hurting yourself in some way: not at all Total score: 0 Depression Screening Interpretation: Negative Depression Screening Done: Yes 48514 - PHQ-9 Billing: Yes Source: Developed by Drs. Chuck Tamayo, Lidia Greenberg, Wilman Farrell and colleagues, with an educational corey from [employer]. Thrive Questionnaire Date Thrive assessed: 04/10/25 I am a: Patient What is your living situation today?: I have a steady place to live Within the past 12 months, did the food you bought not last and you didn't have the money to get more?: Never true Within the past 12 months, did you worry whether your food would run out before you got money to buy more?: Never true Do you have trouble paying for medicines?: No Do you have trouble getting transportation to medical appointments?: No Do you have trouble paying your heating and electricity bill?: No Do you have trouble taking care of your child, family member or friend?: No Do you have trouble with day-to-day activities such as bathing, preparing meals, shopping, managing finances, etc.?: No Are you currently unemployed and looking for a job?: No Are you interested in more education?: No Please select the resources that you would like help with: None Currently or been in a relationship where the following occur: No concerns reported THRIVE Score: 0 SUMA-7 AMB Questionnaire SUMA-7 Date SUMA - 7 assessed: 04/10/25 Feeling nervous, anxious, or on edge: 0 = Not at all Not being able to stop or control worryin = Not at all Worrying too much about different things: 0 = Not at all Trouble relaxin = Not at all Being so restless that it is hard to sit still: 0 = Not at all Becoming easily annoyed or irritable: 0 = Not at all Feeling afraid as if something awful might happen: 0 = Not at all Total SUMA-7 score (0-4 normal; 5-9 mild; 10-14 moderate; 15-21 severe): 0 Source: Developed by Drs. Chuck Tamayo, Lidia Greenberg, Wilman Farrell and colleagues, with an educational corey from [employer]. SUMA-7 Assessment Billing SUMA-7 Assessment Tool: SUMA-7 Assessment 25127 AUDIT C Alcohol Use Questionnaire (AUDIT-C) 1. How often do you have a drink containing alcohol?: 2-4 times a month Total Score: 2 Physical Exam Vital Signs: Last Vital Signs Temp 97.1 F 04/10/25 08:13 Pulse 73 04/10/25 08:13 BP 120/68 04/10/25 08:13 Pulse Ox 98 04/10/25 08:13 Oxygen Delivery Method Room Air 04/10/25 08:13 BMI result Body Mass Index 23.3 HEENT Other: hearing screening whisper test- passed Eyes Other: vision screening- 2019 OS OD OU Other: urinary incontinence? no Neuro Other: balance Romberg- normal tandem walk test- normal walk-in turned test- normal rise from sit to stand- within 2 seconds Office Procedures Flu Questionnaire Does the patient have a severe egg allergy?: No Does the patient have severe life threatening allergies?: No Does the patient have a fever or illness today?: No Has the patient ever had Guillain-[place] Syndrome?: No Has the patient ever had any past reaction to a flu shot?: No Immunizations Fluarix [id number] (PF) 45 mcg (15 mcg x 3)/0.5 mL IM syringe Performing Provider: Favian Roche PA-C Performing Location: [facility] [place] [facility] Administered by: Denise Kaur CMA on 04/10/25 08:39 Dose Route Admin Location Dispensed Lot Number Expiration Date NDC Field Service Coordinator 0.5 mL IM Left Deltoid 0.5 mL [id number] 12/19/25 [id number] [employer] VIS Given Date VIS Provided VIS Publication Date 04/10/25 Single Vaccine 24 Eligibility Eligibility Date Funding Source Not [facility] Eligible 04/10/25 Private Assessment & Plan Assessment & Plan (1) Medicare annual wellness visit, subsequent: Code(s): Z00.00 - Encounter for general adult medical examination without abnormal findings Plan: Per HPI Orders: Orders Complete Blood Count no Diff Today Z13.1 - Encounter for screening for diabetes mellitus Comprehensive [place]. Panel Fast Today Z13.1 - Encounter for screening for diabetes mellitus Prostate Specific Antigen Scr Today Z12.5 - Encounter for screening for malignant neoplasm of prostate, Z13.1 - Encounter for screening for diabetes mellitus Influenza [id number] Immunization Today Z13.1 - Encounter for screening for diabetes mellitus, Z23 - Encounter for immunization Referrals Cologuard Test Z12.11 - Encounter for screening for malignant neoplasm of colon, Z13.1 - Encounter for screening for diabetes mellitus Quality Reporting (2019) Depression/Bipolar (159/160/161/177) PHQ-9: Total score: 0 Coding Level of Care Code Medicare Subsequent (G0439) Diagnoses Medicare annual wellness visit, subsequent Z00.00 CPT Codes Advance Care Planning - Time spent: 1-15 minutes, not on file ([id number]) Additional Codes SUMA-7 Assessment Billing - SUMA-7 Assessment Tool: SUMA-7 Assessment 32137 ([id number]) PHQ-9 - 37383 - PHQ-9 Billing: Yes ([id number]) Advance Care Planning Advance Care Planning discussion: Exists, not on file Date of discussion: 04/10/25 Forms completed: MOLST Time spent: 1-15 minutes, not on file Actual minutes spent: 2
[2025-04-10 08:13] VITALS: BP 120/68; PULSE 73; TEMP 36.2; O2SAT 98; BMI 23.3
== END 2025-04-10 08:41 | disposition home or self-care (01) ==
LOC: HO.HMCH 07:43
PROVIDERS: PCP Physician Assistant; Visit Provider Physician Assistant
DX: Z00.00 Encounter for general adult medical examination without abnormal findings (principal); Z13.1 Encounter for screening for diabetes mellitus; Z23 Encounter for immunization

== ENCOUNTER → 2025-04-10 07:43 | Outpatient (BNVA) | payer MEDICARE, SELFPAY | PROVIDERS: PCP Physician Assistant; Visit Provider Physician Assistant | DX: Z00.00 Encounter for general adult medical examination without abnormal findings (principal); M25.812 Other specified joint disorders, left shoulder; F17.210 Nicotine dependence, cigarettes, uncomplicated; Z23 Encounter for immunization | CPT/HCPCS: 90471; 90656; 96127 ==